=== PATIENT | male | born 1970 | race Caucasian/White ===

== ENCOUNTER 2017-10-14 15:48 | Emergency (ER) | payer OTHER, SELFPAY ==
[2017-10-14 18:03] VITALS: BP 113/80; PULSE 92; RESP 20; TEMP 37.3; O2SAT 99; BMI 30.9
--- NOTE | 2017-10-14 18:32 | HMH.EDUTC ---
[facility] [place] Impression: Bronchopneumonia, Tobacco abuse Disposition: Home, Self-Care Condition on Discharge: Good Instructions: DI for Pneumonia -- Adult, How to Quit Tobacco Products Additional Instructions: * STOP SMOKING!!!! * Your chest xray was consistent with my initial thought, pneumonia. We will treat this and if no better or getting worse, be sure to follow up. * start antibiotic tomorrow since we gave you the first dose here. Be sure to complete entire prescription even if feeling better. * Monitor Temp. Tylenol every 4 hours as needed no more then 5 times a day and/or ibuprofen every 6 hours as needed for fever/aches/pain. ER if fever no less than 101 despite tylenol and ibuprofen * humidifier/vaporizer/hot steamy shower * Inhaler every 4-6 hours as needed like we discussed. If unsure how to use it, ask pharmacist to demonstrate how. Should help open airways and improve cough, wheezing, shortness of breath. * Mucinex during the day for your cough and cough suppressant only at night. Be sure to drink lots of water. Insurance may not cover a prescription of mucinex. Might be cheaper to get 400mg tablets and take 2 tablets morning, midday and evening all with lots of water. * Start steroid tomorrow since we gave you the first dose here. Helps with inflammation therefore, cough and wheezing. Follow directions on package. Rvwd side effects. Pt reports they have taken them before. we have provided you with a list of providers accepting patients. I would encourage you find him a new primary care provider and make an appt [facility] as it can take weeks to get a new patient appointment. In the meantime, follow up in the clinic or ER for new, worsening or persistent symptoms. You also really need a follow up within 3-5 days to reevaluate your lungs, even if feeling better but sooner if feeling worse. You also will need a repeat xray in several weeks to ensure return to baseline. These are all things primary care does so STRONGLY encourage you establish with one. If you can't get in, at least follow up here. Prescriptions: Albuterol Sulfate [Albuterol HFA Inhaler] 1 - 2 puffs IH Q4-6H PRN #1 inh PRN Reason: Shortness Of Breath Or Wheezing Azithromycin [Zithromax 250mg tab] 250 mg PO DAILY #4 tab predniSONE [Prednisone 20mg Tab] 20 mg PO BID #9 tab Time of Disposition: 19:56 Medical Decision Making Vital Signs: 10/14/17 18:03 10/14/17 19:26 Temperature 99.1 F Temperature Source Temporal Artery Scan Pulse Rate 87 Pulse Rate [Right Radial] 92 H Respiratory Rate 20 Blood Pressure [Right Arm] 113/80 Blood Pressure Mean [Right Arm] 91 Blood Pressure Source [Right Arm] Automatic Cuff Blood Pressure Position [Right Arm] Sitting 02 Sat by Pulse Oximetry 99 Oxygen Delivery Method Room Air - Lab Data Lab results reviewed: Yes: I reviewed the patient's lab results. Lab Results 10/14/17 18:55: WBC 4.2 L, RBC 5.39, Hgb 17.4, Hct 51.6, MCV 95.6 H, MCH 32.3 H, MCHC 33.7, RDW 13.5, Plt Count 198, MPV 7.8, Neut % (Auto) 55.8, Lymph % (Auto) 35.5, Hyde % (Auto) 6.8, Eos % (Auto) 1.0, Baso % (Auto) 0.9, Neut # (Auto) 2.3, Lymph # (Auto) 1.5, Hyde # (Auto) 0.3, Eos # (Auto) 0.0, Baso # (Auto) 0.0 10/14/17 18:55: Sodium 136, Potassium 3.7, Chloride 100, Carbon Dioxide 27, Anion Gap 12.7, BUN 9, Creatinine 0.85, Estimated Creat Clear 158, Estimated GFR 96, Est GFR ( Amer) 116, Glucose 137 H 10/14/17 19:00: Influenza Type A Ag Negative, Influenza Type B Ag Negative Result diagrams: 10/14/17 18:55 10/14/17 18:55 Orders (Tests/Meds): ED MEDICATIONS Discontinued Medications Generic Name Dose Route Start Last Admin Trade Name Freq PRN Reason Stop Dose Admin Albuterol/Ipratropium 3 ml 10/14/17 18:44 10/14/17 19:25 Duoneb 3ml Neb IH 10/14/17 18:45 3 ml ONCE ONE Administration Prednisone 20 mg 10/14/17 18:45 10/14/17 19:25 Deltasone 20mg Tablet PO 10/14/17 18:46 20 mg
--- NOTE | 2017-10-14 18:44 | XR_ITS ---
XR chest 2V COMPARISON: None HISTORY: Cough generalized bodyaches TECHNIQUE: PA and lateral chest FINDINGS: Lung person are well expanded. There is a small ill-defined opacity at the right lung base likely confluence of vascular shadows and overlying rib is been a very minimal pneumonic infiltrate right lower lobe the possibility the remainder right lung field is clear and the left lung field is clear. Cardiac size is normal. There are calcified left hilar nodes. IMPRESSION: Questionable right lower lobe bronchopneumonia versus confluence of vascular shadows
[2017-10-14 19:00] LABS: UTC Influenza A Antigen Negative (Negative); UTC Influenza B Antigen Negative (Negative)
[2017-10-14 19:03] LABS: Basophils % 0.9 % (0.1-2.0); Hematocrit 51.6 % (42.0-52.0); Hemoglobin 17.4 g/dL (14.1-18.0); Lymphocytes # 1.5 K/mm3 (0.7-4.5); Lymphocytes % 35.5 K/mm3 (10-50); Mean Corpuscular HGB Conc 33.7 g/dL (31.8-35.4); Mean Corpuscular Hemoglobin 32.3 pg (27.0-31.2); Mean Corpuscular Volume 95.6 fl (80-94); Mean Platelet Volume 7.8 fl (7.4-10.4); Monocytes # 0.3 K/mm3 (0.1-1.0); Monocytes % 6.8 % (1.7-9.3); Neutrophils # 2.3 K/mm3 (1.8-7.8); Neutrophils % 55.8 % (37.0-80.0); Platelet Count 198 K/mm3 (142-424); Red Blood Count 5.39 M/mm3 (4.60-6.20); Red Cell Distribution Width 13.5 % (11.5-17.5); White Blood Count 4.2 K/mm3 (4.8-10.8)
[2017-10-14 19:07] LABS: Anion Gap 12.7 mEq/L (5-15); Blood Urea Nitrogen 9 mg/dL (7-18); Carbon Dioxide 27 mmol/L (21.0-32.0); Chloride 100 mmol/L (98-107); Creatinine Clearance Estimated 158 mL/min (0-300); Creatinine,Serum 0.85 mg/dL (0.70-1.30); Estimated Glomerular Filt Rate 96 ml/min (>60); GFR (African American) 116 ML/MIN (>60); Glucose 137 mg/dL (74-106); Potassium 3.7 mmoL/L (3.5-5.1); Sodium 136 mmol/L (136-145)
[2017-10-14 19:26] VITALS: PULSE 87; PULSE 88
[2017-10-14 20:00] VITALS: BP 145/80; PULSE 78; RESP 20; TEMP 36.6; O2SAT 99
== END 2017-10-14 20:01 | disposition home or self-care (01) ==
LOC: ER 16:22 → UTC 16:22
PROVIDERS: Emergency Provider Nurse Practitioner Family
DX: J18.0 Bronchopneumonia, unspecified organism (principal); Z72.0 Tobacco use
CPT/HCPCS: 36415; 71046; 80048; 85025; 87804; 99202